=== PATIENT | female | born 1950 | race Caucasian/White ===

== ENCOUNTER 2019-12-01 16:59 | Inpatient (IN) | payer MEDICARE ==
[~2019-12-01] VITALS: Ht 167.6 cm; Wt 80.6 kg
[~2019-12-01 16:59] MED LIST: ATOXIMETIN-B1 CAP PO; AZULFIDINE ENT500 MG PO; CALCIUM 600600 M2 PO; FOLIC ACID PO; FOSAMAX70 MG PO; METHOTREXATE25 MG/M2 IJ; PROTONIX40 MG PO; SYNTHROID0.125 MG PO
[2019-12-01] MEDS ORDERED: SYNTHROID0.137 MG (17:13)
[2019-12-01] MEDS ORDERED: TREXALL15 MG PO (17:14)
[2019-12-01] MEDS ORDERED: FOLIC ACID 11 MG/TA1 PO (17:14)
[2019-12-01] MEDS ORDERED: PROTONIX 40MG T40 MG PO (17:14)
[2019-12-01] MEDS ORDERED: AZULFIDINE500 MG/TAB PO (17:14)
[2019-12-01] MEDS ORDERED: MULTI VITAMINS1 TAB PO (17:15)
[2019-12-01] MEDS ORDERED: VITAMIN D 400400 IU PO (17:15)
[2019-12-01] MEDS ORDERED: CALCIUM CITRAT200 M2 (17:15)
[2019-12-01] MEDS ORDERED: AROMASIN25 MG (17:16)
[2019-12-01 17:45] LABS: BASO # 0.1 (0.0-0.2); BASO % 0.3 % (0.0-2.0); EOS # 0.1 (0.0-0.7); EOS % 0.3 % (0-4.0); GRAN % 86.5 % (42.2-75.2); HEMATOCRIT 38.4 % (37.0-47.0); HEMOGLOBIN 12.8 g/dl (12.5-16.0); LYMPH # 0.7 (1.2-3.4); LYMPH % 4.6 % (20.0-51.0); MEAN CELL VOLUME 101 fl (80.0-100.0); MEAN CORPUSCULAR HEMOGLOBIN 34 pg (27.0-31.0); MEAN CORPUSCULAR HGB CONC 33 g/dl (33.0-37.0); MEAN PLATELET VOLUME 9.7 fl (7.4-10.4); MONO # 1.2 (0.1-0.6); MONO % 7.5 % (1.7-9.3); PLATELET COUNT 233 K/mm3 (130-400); RED BLOOD COUNT 3.81 M/mm3 (4.10-5.30); REDCELL DISTRIBUTION WIDTH-CV 14.6 % (11.5-14.5)
[2019-12-01 17:54] LABS: ALBUMIN 4.3 gm/dL (3.5-5.0); BILIRUBIN,TOTAL 0.6 mg/dL (0.0-1.0); CALCIUM 9.8 mg/dL (8.4-10.2); CREATININE, serum 0.71 (0.52-1.25); POTASSIUM 4.1 mmol/L (3.4-5.0); TOTAL PROTEIN 7.4 gm/dL (6.4-8.2)
[2019-12-01 19:58] VITALS: BP 171/62; PULSE 74; TEMP 98.2
--- NOTE | 2019-12-01 20:00 | NUR ---
Received patient from ER via stretcher. Patient has left hip fracture. On left arm restrict. Informed Celee via phone call that patient is already admitted at her room. Instructed patient that she's on NPO by midnight. With INT on left AC.
[2019-12-01 21:20] LABS: PROTHROMBIN TIME 11.9 SECONDS (9.7-12.8)
--- NOTE | 2019-12-01 23:35 | NUR ---
This nurse asked Magdy PERDOMO, if patient is already cleared for the procedure and she said yes. Updated Radha of ortho via phone call that hospitalist cleared patient for procedure. This nurse asked executive housekeeper for lucero catheter insertion. Ice pack applied to her left hip. SCD applied. Patient's flower coin purse was handed to executive housekeeper to be kept in the safe.
[2019-12-01 23:48] VITALS: BP 163/61; PULSE 77; TEMP 99.1
[2019-12-01 23:59] LABS: COLLECTION METHOD CLEAN CATCH
[2019-12-02] VITALS (12 sets, daily range): BP systolic 110–151; BP diastolic 47–64; PULSE 72–92; TEMP 97.8–99.1
[2019-12-02 00:05] LABS: MUCOUS Present /lpf; PH 6 (5-8); SQUAMOUS EPITHELIAL 0-2 /hpf; URINE APPEARANCE Clear; URINE BACTERIA None Seen /hpf; URINE BILIRUBIN Negative (NEGATIVE); URINE BLOOD Negative (NEGATIVE); URINE COLOR Yellow; URINE GLUCOSE Negative (NEGATIVE); URINE KETONE 1+ (NEGATIVE); URINE LEUKOCYTE ESTERASE Negative (NEGATIVE); URINE NITRATE Negative (NEGATIVE); URINE PROTEIN(semi-quant) Negative (NEGATIVE); URINE RBC 0-2 /hpf; URINE UROBILINOGEN Negative (NEGATIVE)
[2019-12-02 06:18] LABS: ALBUMIN 3.4 gm/dL (3.5-5.0); CALCIUM 8.9 mg/dL (8.4-10.2); CREATININE, serum 0.61 (0.52-1.25); POTASSIUM 4.4 mmol/L (3.4-5.0); TOTAL PROTEIN 6.2 gm/dL (6.4-8.2)
--- NOTE | 2019-12-02 06:20 | NUR ---
PAtient has pain on her left hip and groin. Morphine PRN given. Ice pack maintained and placed on her left hip. Catheter draining well with yellow orange urine. Informed consent was signed. Dr. Fuentes stopped by to see the patient and put a marking on her left hip.
[2019-12-02 06:25] LABS: INR 1.1 (0.8-3.0); PROTHROMBIN TIME 12.4 SECONDS (9.7-12.8)
[2019-12-02 06:40] LABS: BASO # 0.1 (0.0-0.2); BASO % 0.7 % (0.0-2.0); EOS # 0.3 (0.0-0.7); EOS % 2.6 % (0-4.0); GRAN % 80.8 % (42.2-75.2); HEMATOCRIT 35.3 % (37.0-47.0); HEMOGLOBIN 11.8 g/dl (12.5-16.0); LYMPH # 0.8 (1.2-3.4); LYMPH % 7.4 % (20.0-51.0); MEAN CELL VOLUME 100 fl (80.0-100.0); MEAN CORPUSCULAR HEMOGLOBIN 33 pg (27.0-31.0); MEAN CORPUSCULAR HGB CONC 33 g/dl (33.0-37.0); MEAN PLATELET VOLUME 9.6 fl (7.4-10.4); MONO # 0.9 (0.1-0.6); PLATELET COUNT 183 K/mm3 (130-400); RED BLOOD COUNT 3.54 M/mm3 (4.10-5.30); REDCELL DISTRIBUTION WIDTH-CV 14.7 % (11.5-14.5)
--- NOTE | 2019-12-02 09:05 | NUR ---
Received patient from PACU per bed. No c/o pain. Left hip dressing CDI. VSS.
--- NOTE | 2019-12-02 13:37 | NUR ---
Met with patient from [facility]: Patient plans to return home with spouse Allan who will also provide transport. Patient reports PCP as Dr. Joaquin. Patient reports [facility] is where she obtains her medications. Patient reports that her is her DPOA. Denies any DME use or homehealth. Patient shares that she adult children 3. Denies care concerns. No additional supports or needs identified.
--- NOTE | 2019-12-02 14:00 | NUR ---
VSS. Denies pain. Taking fluids well. Sleeps at intervals.
--- NOTE | 2019-12-02 19:36 | NUR ---
Received report from Lauren. Seen patient awake, lying on bed. With reynaldo jean-baptiste and SCD on both lower extremities. With IV at right AC infusing LR at 100ml/hr. ON left arm restrict. With dressing on her left hip. Denies any pain. Will continue to monitor.
[2019-12-03 00:22] VITALS: BP 115/55; PULSE 84; TEMP 98.5
--- NOTE | 2019-12-03 00:28 | NUR ---
Repositioned patient on her right side. Ice pack replaced and applied on her left hip. SCD removed for now and maintained reynaldo hose. Denies any pain.
[2019-12-03 04:20] VITALS: BP 117/56; PULSE 78; TEMP 99.3
--- NOTE | 2019-12-03 05:40 | NUR ---
Oral care done independently by patient. Provided shower cap shampoo and bath wipes to patient. Perineal care done as well. Changed bed sheets and gown. Patient was able to move from side to side. Head of bed elevated. Denies any pain.
[2019-12-03 06:52] LABS: BASO % 0.2 % (0.0-2.0); CALCIUM 8.6 mg/dL (8.4-10.2); CREATININE, serum 0.72 (0.52-1.25); EOS # 0.3 (0.0-0.7); EOS % 2.3 % (0-4.0); GRAN # 9.9 (1.4-6.5); GRAN % 78.8 % (42.2-75.2); HEMOGLOBIN 10.6 g/dl (12.5-16.0); LYMPH # 1.3 (1.2-3.4); LYMPH % 9.9 % (20.0-51.0); MEAN CELL VOLUME 101 fl (80.0-100.0); MEAN CORPUSCULAR HEMOGLOBIN 34 pg (27.0-31.0); MEAN CORPUSCULAR HGB CONC 34 g/dl (33.0-37.0); MEAN PLATELET VOLUME 10.6 fl (7.4-10.4); MONO # 1.1 (0.1-0.6); MONO % 8.4 % (1.7-9.3); PLATELET COUNT 161 K/mm3 (130-400); POTASSIUM 4.6 mmol/L (3.4-5.0); RED BLOOD COUNT 3.08 M/mm3 (4.10-5.30); REDCELL DISTRIBUTION WIDTH-CV 14.6 % (11.5-14.5)
[2019-12-03 08:22] VITALS: BP 109/49; PULSE 93; TEMP 98.3
--- NOTE | 2019-12-03 09:35 | NUR ---
Patient sitting up in chair. She did very well. Pain with movement, reports the pain in her left groin. Not yet requesting pain medication, was given her scheduled toradol. Patient has brace to her wrist & platform walker used. Left hip aquacell dressing clean dry & intact. Int Rac. She did well with breakfast. Will kain.
--- NOTE | 2019-12-03 12:17 | NUR ---
Patient continues to do well sitting up in chair. Enjoying her lunch. Tylenol for pain managment, really had to encouraged patient to take. ICe pack to hip. Sarina Ramesh, we ambulated in room with walker & she did quite well.
[2019-12-03 12:18] VITALS: BP 100/44; PULSE 83; TEMP 98.6
[2019-12-03 15:38] VITALS: BP 115/50; PULSE 77; TEMP 98.2
--- NOTE | 2019-12-03 16:01 | NUR ---
Patient up to the bathroom. Stand by assist with walker & gaitbelt. She voided & had BM. tylenol releived some pain. Will monitor
--- NOTE | 2019-12-03 17:18 | NUR ---
Patient visiting on the phone with family. Eating dinner.
--- NOTE | 2019-12-03 19:00 | NUR ---
Received report from Tanesha. Seen patient awake, sitting in bed. Deneis any pain at the moment. She states she was able to walk awhile ago with the use of her walker. With INT on right AC.
[2019-12-03 20:27] VITALS: BP 111/54; PULSE 78; TEMP 97.9
--- NOTE | 2019-12-04 00:10 | NUR ---
Assisted patient to the bathroom. She was able to walk well using her walker. She says it's a bit sore at first but she was able to tolerate it once she gets to move. Applied back reynaldo hose and SCD on both legs. Ice pack in place on her left hip.
[2019-12-04 00:46] VITALS: BP 122/57; PULSE 75; TEMP 97.6
[2019-12-04 04:21] VITALS: BP 113/44; PULSE 81; TEMP 99.1
--- NOTE | 2019-12-04 05:15 | NUR ---
Assisted patient to the bathroom. She complains of pain on her left hip, pain score of 8/10. Celebrex PRN given.
[2019-12-04 06:24] LABS: BASO # 0.1 (0.0-0.2); BASO % 0.8 % (0.0-2.0); EOS # 0.8 (0.0-0.7); EOS % 7.9 % (0-4.0); GRAN # 6.8 (1.4-6.5); HEMOGLOBIN 10.1 g/dl (12.5-16.0); LYMPH # 0.9 (1.2-3.4); LYMPH % 9.7 % (20.0-51.0); MEAN CELL VOLUME 101 fl (80.0-100.0); MEAN CORPUSCULAR HEMOGLOBIN 34 pg (27.0-31.0); MEAN CORPUSCULAR HGB CONC 34 g/dl (33.0-37.0); MEAN PLATELET VOLUME 10.4 fl (7.4-10.4); MONO # 0.9 (0.1-0.6); MONO % 9.3 % (1.7-9.3); PLATELET COUNT 175 K/mm3 (130-400); RED BLOOD COUNT 2.94 M/mm3 (4.10-5.30); REDCELL DISTRIBUTION WIDTH-CV 14.7 % (11.5-14.5)
[2019-12-04 06:30] LABS: HEMATOCRIT 29.6 % (37.0-47.0)
[2019-12-04 06:38] LABS: CALCIUM 8.6 mg/dL (8.4-10.2); CREATININE, serum 0.69 (0.52-1.25); POTASSIUM 4.3 mmol/L (3.4-5.0)
--- NOTE | 2019-12-04 09:00 | NUR ---
PATIENT SITTING UP IN THE CHAIR THIS MORNING. PATIENT IS A&OX4. VSS. BOWEL SOUNDS ACTIVE ALL FOUR QUADRANTS. PATIENT TOLERATING DIET WITHOUT ANY COMPLAINTS OF N/V. POSITIVE PEDAL PULSES EQUAL BILATERALLY. ARJUN HOSE TO BLE. CAP REFILL <3 SECONDS. CMS INTACT. EDEMA TO LLE NOTED. LEFT HIP AQUACEL IN PLACE AND IS CD&I. PATIENT GIVEN A PRN PO DOSE OF PAIN MEDICATITON PRIOR TO WORKING WITH THERAPY THIS MORNING. CALL LIGHT WITHIN REACH. PATIENT DENIES ANY OTHER NEEDS AT THIS TIME.
[2019-12-04 09:04] VITALS: BP 111/55; PULSE 88; TEMP 98.8
[2019-12-04] MEDS ORDERED: ASPIRIN 32325 MG/TA1 PO (09:53)
[2019-12-04] MEDS ORDERED: NORCO 325 MG-7.1 TAB PO (09:57)
--- NOTE | 2019-12-04 11:26 | NUR ---
First visit from the tool maker apprentice. No needs right now.
[2019-12-04 12:08] VITALS: BP 113/48; PULSE 78; TEMP 97.9
--- NOTE | 2019-12-04 13:07 | NUR ---
[employer] Manager attended clinical rounds with the team and patient to discharge home today. Patient needs a front wheeled walker with platform attachment. CHERRY spoke with patient who would like to use [facility] if possible. CHERRY contacted [facility] and was advised that they do not carry platform attachments. CHERRY followed up with patient who then selected [facility]. CHERRY faxed signed order, facesheet, H&P, and PT notes to [facility]. CHERRY contacted María at [facility] who reports the walker would be delivered today. Patient is interested in outpatient physical therapy and would like to have an appointment set up at [facility]. CHERRY spoke with director community center who will make appointment. CHERRY met with patient and read IM form aloud. Patient verbalized understanding and provided verbal consent as signature. CHERRY placed form on chart and provided copy to patient. No additional needs at this time.
--- NOTE | 2019-12-04 16:32 | NUR ---
RIGHT AC INT DISCONTINUED PER PENDING DISCHARGE. TIP INTACT. PATIENT TOLERATED WELL. DISCHARGE INSTRUCTIONS REVIEWED WITH PATIENT. QUESTIONS SOUGHT AND ANSWERED. PATIENT PERSONAL BELONGINGS GATHERED. PATIENT TAKEN TO PERSONAL VEHICLE VIA WHEELCHAIR BY SURGICAL STAFF. PATIENT DISCHARGED.
== END 2019-12-04 16:32 | disposition home or self-care (01) | DRG 956 ==
LOC: COL.ER 16:59 → SURG 18:49
PROVIDERS: Family Medicine; Orthopaedic Surgery; Physician Assistant; ADMIT Internal Medicine
PROC: 0SRB0J9 Replacement of Left Hip Joint with Synthetic Substitute, Cemented, Open Approach (ICD-10-PCS; principal; 2019-12-02 07:25)
DX: S72.012A Unspecified intracapsular fracture of left femur, initial encounter for closed fracture (principal); S32.512A Fracture of superior rim of left pubis, initial encounter for closed fracture; S62.102A Fracture of unspecified carpal bone, left wrist, initial encounter for closed fracture; D72.829 Elevated white blood cell count, unspecified; M06.9 Rheumatoid arthritis, unspecified; E03.9 Hypothyroidism, unspecified; C50.912 Malignant neoplasm of unspecified site of left female breast
CPT/HCPCS: 99222-AI; 99232-AI; 99239; A9284; C1776; J0690; J1100; J1170; J1885; J2250; J2270; J2405; J2704; J3010; J7120

== ENCOUNTER → 2020-03-06 | Outpatient (RCR) | payer MEDICARE ==
[~2020-03-06] MED LIST changes: +AROMASIN25 MG; +ASPIRIN 32325 MG/TA1 PO; +AZULFIDINE500 MG/TAB PO; +CALCIUM CITRAT200 M2; +FOLIC ACID 11 MG/TA1 PO; +MULTI VITAMINS1 TAB PO; +NORCO 325 MG-7.1 TAB PO; +PROTONIX 40MG T40 MG PO; +SYNTHROID0.137 MG; +TREXALL15 MG PO; +VITAMIN D 400400 IU PO
== END | disposition home or self-care (01) ==
LOC: WSC
DX: S72.002A Fracture of unspecified part of neck of left femur, initial encounter for closed fracture (principal)

== ENCOUNTER → 2020-03-07 | Outpatient (CLI) | payer MEDICARE | LOC: MC.RAD 08:40 | DX: Z12.31 Encounter for screening mammogram for malignant neoplasm of breast (principal) ==